=== PATIENT | female | born 1985 | race Caucasian/White ===

== ENCOUNTER 2020-12-10 14:42 | Emergency (ER) | payer OTHER ==
[2020-12-10 16:05] LABS: BASOPHIL 0.3 % (0-2); EOSINOPHIL 0.1 % (0-5); HCT 41.7 % (37.0-47.0); HGB 14.4 g/dl (12.5-16.0); LYMPHOCYTE 4.7 % (15-48); MCH 32.3 pg (25.0-31.0); MCHC 34.5 g/dL (32.0-36.0); MCV 93.5 fL (78.0-100.0); MPV 9.8 fL (6.0-9.5); NEUTROPHIL 90.3 % (41-80); NRBC 0; PLT 318 K/uL (150-400); RBC 4.46 M/uL (4.20-5.40); RDW 12.8 % (11.5-14.0); WBC 23.1 K/uL (4.0-10.5)
[2020-12-10 16:11] LABS: MONOSPOT (MONONUCLEOSIS) NEGATIVE (NEGATIVE)
[2020-12-10 16:24] LABS: BUN/CREAT RATIO (CALC) 11.3 RATIO; CREATININE 0.62 mg/dL (0.51-0.95)
== END 2020-12-10 18:24 | disposition home or self-care (01) ==
LOC: FER 14:42
PROVIDERS: Emergency Medicine
DX: J03.90 Acute tonsillitis, unspecified (principal); F17.210 Nicotine dependence, cigarettes, uncomplicated; Z88.0 Allergy status to penicillin
CPT/HCPCS: 36415; 70491; 80048; 85025; 86308; 87880; Q9967